=== PATIENT | male | born 1990 | race African-American/Black ===

== ENCOUNTER 2021-10-01 11:35 | Emergency (ER) | payer OTHER ==
[2021-10-01 12:20] VITALS: BP 115/65; PULSE 68; RESP 17; TEMP 98.2; BMI 22.7
[2021-10-01 14:11] LABS: SYPHILIS W/ RPR CONF NON-REACTIVE (NONREACTIVE)
[2021-10-01 14:40] LABS: HIV INTERPRETATION NEGATIVE (NEGATIVE)
== END 2021-10-01 13:49 | disposition home or self-care (01) ==
LOC: JER 11:35 → JERFT 11:35
DX: L02.31 Cutaneous abscess of buttock (principal)
CPT/HCPCS: 36415; 86780; 87389; 99283-25